=== PATIENT | male | born 1950 | race African-American/Black ===

== ENCOUNTER 2018-09-08 12:20 | Inpatient (IN) | payer MEDICARE ==
[2018-09-08 13:05] VITALS: BP 133/68
[2018-09-08] MEDS ORDERED: Magnesium Hydroxide (MOM) 30 mL UDC PO PRN (14:16)
[2018-09-08] MEDS ORDERED: Maalox 30 mL Cup PO PRN (14:16)
[2018-09-08 16:42] LABS: CHOLESTEROL 170 mg/dL (<200); HDL -HIGH DENSITY LIPOPROTEIN 50 mg/dL (23-92); TRIGLYCERIDES 135 mg/dL (<150)
[2018-09-09 07:02] LABS: % BASOPHILS 0.6 % (0.0-2.0); % EOSINOPHILS 0.8 % (0.0-5.0); % LYMPHOCYTES 36.6 % (20.0-50.0); % MONOCYTES 7.9 % (2.0-10.0); % NEUTROPHILS 54.1 % (40.0-80.0); HEMATOCRIT 43.8 % (41.0-60); HEMOGLOBIN 14.7 gm/dL (12-16); LYMPHOCYTE ABSOLUTE 1.8 Th/cmm (1.5-3.0); MEAN CELL VOLUME 89.4 fl (80-99); MEAN CORPUSCULAR HGB CONC 33.5 pg (28.0-36.0); MEAN PLATELET VOLUME 8.2 fl; MONOCYTE ABSOLUTE 0.4 Th/cmm (0.3-1.0); NEUTROPHILE ABSOLUTE 2.7 Th/cmm (1.8-8.0); PLATELET COUNT 216 Th/cmm (150-400); RED BLOOD COUNT 4.89 Mil/cmm (3.80-5.80); RED CELL DISTRIBUTION WIDTH 13.9 % (11.5-20.0); WHITE BLOOD COUNT 4.9 Th/cmm (4.8-10.8)
[2018-09-09 07:13] LABS: ALB/GLOB RATIO 1.5 (1.0-1.8); ALBUMIN 4.4 gm/dL (4.2-5.5); ALKALINE PHOSPHATASE 70 U/L (34-104); ANION GAP 11.6 (7.0-16.0); BILIRUBIN,TOTAL 0.7 mg/dL (0.3-1.0); BUN - UREA NITROGEN 13 mg/dL (7-25); CALCIUM SERUM 9.7 mg/dL (8.6-10.3); CARBON DIOXIDE 28.6 mEq/L (21.0-31.0); CHLORIDE 95 mEq/L (98-107); CREATININE - SERUM 1.1 mg/dL (0.7-1.3); GFR AFRICAN-AMERICAN > 60.0 ml/min (>90); GFR NON AFRICAN-AMERICAN > 60.0 ml/min; GLUCOSE 305 mg/dL (70-105); POTASSIUM SERUM 4.2 mEq/L (3.5-5.1); SGOT 12 U/L (13-39); SGPT/ALT 17 U/L (7-52); SODIUM SERUM 131 mEq/L (136-145); TOTAL PROTEIN,SERUM 7.3 gm/dL (6.0-8.3)
--- NOTE | 2018-09-09 08:29 | Diagnostic Imaging Report ---
Chest x-ray single view History: Pneumonia Comparison: None The heart size is normal. No focal pulmonary parenchymal processes. No hilar or mediastinal abnormalities. Impression: No acute abnormalities
[2018-09-09] MEDS: Multivitamin w/ Minerals Tab PO SCH (11:21)
[2018-09-09] MEDS: Carbidopa/Levodopa 10/100 mg Tab PO SCH ×2 (11:21→16:26)
[2018-09-09] MEDS ORDERED: INSULIN LISPRO SLIDING SCALE 100 UNITS/ML UNIT SUBQ SCH (11:30)
[2018-09-09] MEDS: INSULIN LISPRO SLIDING SCALE 100 UNITS/ML UNIT SUBQ SCH ×2 (16:39→21:00)
--- NOTE | 2018-09-10 00:03 | Consultation ---
DATE OF CONSULTATION: INTERNAL MEDICINE CONSULTATION REFERRING PHYSICIAN: Dr. Castellanos. REASON FOR CONSULT: Medical management. HISTORY OF PRESENT ILLNESS: This is a 67-year-old -[place] gentleman with history of schizophrenia, schizoaffective disorder, bipolar disease; who was transferred from the another facility for further psych supportive care and management. He does have a history significant for Parkinson's disease, type 2 diabetes, possibly BPH, and nicotine dependence. He also apparently suffers from dementia. PAST MEDICAL HISTORY: As noted above. PAST SURGICAL HISTORY: Appendectomy many years ago. FAMILY HISTORY: Noncontributory to this admission. SOCIAL HISTORY: Smokes about half a pack a day, has been doing that for many years. Denies any ETOH and illicit drug usage. ALLERGIES: NKDA. OUTPATIENT MEDICATIONS: Insulin sliding scale with lispro, Celexa 20 every day, Tylenol 325 q.4h. p.r.n., aspirin 81 every day, carbidopa/levodopa 10/100 2 tabs q.a.c., Comtan 200 mg t.i.d., gabapentin 300 mg t.i.d., Glucophage 500 mg b.i.d., multivitamins every day, and Flomax 0.4 every day. REVIEW OF SYSTEMS: CONSTITUTIONAL: Denies any fever, chills, and no recent weight loss. CARDIOVASCULAR: No chest pain, angina type symptomatology. PULMONARY: No cough, phlegm production. GASTROINTESTINAL: No bowel habit changes. GENITOURINARY: No bladder habit changes. NEUROLOGIC: Chronic upper extremity tremors. He also relates difficult ambulation secondary to his Parkinson's disease. PHYSICAL EXAMINATION: VITAL SIGNS: Temperature 97.8, pulse 83, respirations 20, BP 126/83, and satting 96-97% on room air. GENERAL: Well-developed, well-nourished male, currently sitting up in a wheelchair, awake, able to answer simple questions. HEAD AND NECK: Normocephalic, atraumatic. Pupils are reactive to light. Extraocular movements are intact. Oropharynx moist and clear. CARDIAC: Regular rate and rhythm with distant sounds. No audible murmurs. LUNGS: Diminished at the bases, but clear to auscultation bilaterally. ABDOMEN: Soft, supple, nontender, nondistended, normoactive bowel sounds. EXTREMITIES: Lower extremities, no pedal edema. NEUROLOGIC: Cranial nerves II through XII grossly within limits. He does have an unintentional tremor on both upper extremities. Rest of the exam could not be tested at this time. LABORATORY DATA: CBC was essentially within normal limits. Sodium 131, potassium 4.2, chloride 95, CO2 28, BUN 13, creatinine 1.1, glucose 305. LFTs were within normal limits. DIAGNOSTICS: Chest x-ray done on admission shows no acute abnormalities. IMPRESSION: 1. Acute psych decompensation. 2. History of schizophrenia/schizoaffective disease. 3. History of bipolar disease. 4. History of Parkinson's disease. 5. History of diabetes. 6. History of benign prostatic hypertrophy. PLAN: The patient at this time will remain on his current medications including metformin at 500 mg b.i.d. as well as aspirin 81 every day, and carbidopa/levodopa. He will be monitored with insulin sliding scale and meds will be adjusted accordingly. I will ask for a hemoglobin A1c and a TSH level as well. JOB# [id number] MEGGAN
--- NOTE | 2018-09-10 03:12 | Psychiatric Evaluation ---
DATE OF SERVICE: 09/09/2018 PATIENT'S ID: A 67-year-old male. JUSTIFICATION FOR HOSPITALIZATION: "Worsening psychosis." CHIEF COMPLAINT: "I lost my mind." HISTORY OF PRESENT ILLNES: Again, 67-year-old male, currently in the hospital, psychotic decompensation, noting that he does not feel safe outside the hospital setting, distressed, endorsing psychological distress, turmoil, coming on a hold. The patient noting that he is having a difficult time coping with his thoughts , negative thoughts, pessimistic thoughts. Fair sleep, fair appetite. PAST PSYCHIATRIC HISTORY: Schizophrenia, hospitalizations in the past. Under medical, please see full H and P. SOCIAL HISTORY: The patient was born in [place], not . He has 3 kids; 36, 32, 26. Very little contact. The patient was living in [place], but wants to live more locally to the hospital. MEDICATIONS: Noted. MENTAL STATUS EXAMINATION: Stated age, fair eye contact. Speech within normal limits. Mood "okay." Some tardive dyskinesia movements. Oral buccal movements noted, restless on exam. No overt SI or HI. The patient attesting to voices, hallucinations. Insight and judgment diminished. PROVISIONAL DIAGNOSIS: Schizophrenia. Under medical, please see full H and P. RECOMMENDATIONS AND PLAN: We will attempt to treat psychotic symptoms. The patient with diagnosis of Parkinson's per the patient and what appears to be tardive dyskinesia. PLAN: We will initiate small dose of Seroquel twice daily to attempt to alleviate his psychotic symptoms without worsening the tardive dyskinesia or the Parkinson's disease. TREATMENT PLAN: Includes group as well as milieu therapy. CONDITIONS FOR DISCHARGE: Improved mood, improved affect, and better control of psychosis. [facility]# [id number]
[2018-09-10] MEDS: Carbidopa/Levodopa 10/100 mg Tab PO SCH ×3 (06:57→17:30)
[2018-09-10] MEDS: INSULIN LISPRO SLIDING SCALE 100 UNITS/ML UNIT SUBQ SCH ×4 (07:06→21:47)
[2018-09-10] MEDS: Multivitamin w/ Minerals Tab PO SCH (09:16)
--- NOTE | 2018-09-10 09:38 | Internal Medicine Prog Note ---
Internal Medicine Subjective - Subjective Service Date: 09/10/18 (NO ACUTE EVENTS OR CHANGES) Patient seen and examined:: without staff Patient is:: awake Per staff patient has:: no adverse event Internal Medicine Objective - Results Result Diagrams: 09/09/18 06:35 09/09/18 06:35 Recent Labs: Laboratory Last Values WBC 4.9 Th/cmm (4.8-10.8) 09/09/18 06:35 RBC 4.89 Mil/cmm (3.80-5.80) 09/09/18 06:35 Hgb 14.7 gm/dL (12-16) 09/09/18 06:35 Hct 43.8 % (41.0-60) 09/09/18 06:35 MCV 89.4 fl (80-99) 09/09/18 06:35 MCH 30.0 pg (27.0-31.0) 09/09/18 06:35 MCHC Differential 33.5 pg (28.0-36.0) 09/09/18 06:35 RDW 13.9 % (11.5-20.0) 09/09/18 06:35 Plt Count 216 Th/cmm (150-400) 09/09/18 06:35 MPV 8.2 fl 09/09/18 06:35 Neutrophils % 54.1 % (40.0-80.0) 09/09/18 06:35 Lymphocytes % 36.6 % (20.0-50.0) 09/09/18 06:35 Monocytes % 7.9 % (2.0-10.0) 09/09/18 06:35 Eosinophils % 0.8 % (0.0-5.0) 09/09/18 06:35 Basophils % 0.6 % (0.0-2.0) 09/09/18 06:35 Sodium 131 mEq/L (136-145) L 09/09/18 06:35 Potassium 4.2 mEq/L (3.5-5.1) 09/09/18 06:35 Chloride 95 mEq/L (98-107) L 09/09/18 06:35 Carbon Dioxide 28.6 mEq/L (21.0-31.0) 09/09/18 06:35 Anion Gap 11.6 (7.0-16.0) 09/09/18 06:35 BUN 13 mg/dL (7-25) 09/09/18 06:35 Creatinine 1.1 mg/dL (0.7-1.3) 09/09/18 06:35 Est GFR ( Amer) > 60.0 ml/min (>90) 09/09/18 06:35 Est GFR (Non-Af Amer) > 60.0 ml/min 09/09/18 06:35 BUN/Creatinine Ratio 11.8 09/09/18 06:35 Glucose 305 mg/dL (70-105) H 09/09/18 06:35 Calcium 9.7 mg/dL (8.6-10.3) 09/09/18 06:35 Total Bilirubin 0.7 mg/dL (0.3-1.0) 09/09/18 06:35 AST 12 U/L (13-39) L 09/09/18 06:35 ALT 17 U/L (7-52) 09/09/18 06:35 Alkaline Phosphatase 70 U/L (34-104) 09/09/18 06:35 Total Protein 7.3 gm/dL (6.0-8.3) 09/09/18 06:35 Albumin 4.4 gm/dL (4.2-5.5) 09/09/18 06:35 Globulin 2.9 gm/dL 09/09/18 06:35 Albumin/Globulin Ratio 1.5 (1.0-1.8) 09/09/18 06:35 Triglycerides 135 mg/dL (<150) 09/08/18 16:00 Cholesterol 170 mg/dL (<200) 09/08/18 16:00 LDL Cholesterol Direct 105 mg/dL (75-193) 09/08/18 16:00 HDL Cholesterol 50 mg/dL (23-92) 09/08/18 16:00 - Physical Exam Vitals and I&O: Vital Signs Temp 97.6 F 09/10/18 06:33 Pulse 100 09/10/18 06:33 Resp 20 09/10/18 06:33 BP 113/70 09/10/18 06:33 Pulse Ox 97 09/10/18 06:33 Intake & Output 09/09/18 09/10/18 09/10/18 18:59 06:59 18:59 Intake Total 900 240 Balance 900 240 Intake: Oral 900 240 Other: # Voids 3 2 # Bowel Movements 1 0 Active Medications: Current Medications Acetaminophen (Tylenol) 650 mg PO Q4HR PRN PRN Reason: Mild Pain / Temp above 100 Stop: 11/07/18 14:15 Last Admin: 09/09/18 09:11 Dose: 650 mg Al Hydrox/Mg Hydrox/Simethicone (Maalox) 30 ml PO Q4HR PRN PRN Reason: GI DISTRESS Stop: 11/07/18 14:15 Aspirin (Ecotrin) 81 mg PO DAILY [facility] Stop: 11/08/18 10:14 Last Admin: 09/10/18 09:16 Dose: 81 mg Carbidopa/Levodopa (Sinemet 10 Mg-100 Mg) 2 tab PO AC [facility] Stop: 11/08/18 11:29 Last Admin: 09/10/18 06:57 Dose: 2 tab Entacapone (Comtan) 200 mg PO TID [facility] Stop: 11/08/18 13:59 Last Admin: 09/10/18 09:16 Dose: 200 mg Gabapentin (Neurontin) 300 mg PO TID [facility] Stop: 11/08/18 13:59 Last Admin: 09/10/18 09:16 Dose: 300 mg Insulin Human Lispro (Humalog Insulin Sliding Scale) 0 units SUBQ ACHS [facility]; Protocol Stop: 11/08/18 11:29 Last Admin: 09/10/18 07:06 Dose: 10 units Lorazepam (Ativan) 0.5 mg PO Q4HR PRN; Protocol PRN Reason: Anxiety Stop: 10/08/18 14:15 Last Admin: 09/09/18 21:19 Dose: 0.5 mg Magnesium Hydroxide (Milk Of Magnesia) 30 ml PO HS PRN PRN Reason: Constipation Metformin HCl (Glucophage) 500 mg PO BID [facility] Stop: 11/08/18 10:14 Last Admin: 09/10/18 09:16 Dose: 500 mg Quetiapine Fumarate (Seroquel) 25 mg PO BID [facility]; Protocol Stop: 11/08/18 16:59 Tamsulosin HCl (Flomax) 0.8 mg PO HS [facility] Stop: 11/08/18 20:59 Last Admin: 09/09/18 21:18 Dose: 0.8 mg Zolpidem Tartrate (Ambien) 5 mg PO HS PRN PRN Reason: Insomnia Stop: 11/07/18 14:15 Last Admin: 09/08/18 21:34 Dose: 5 mg General: alert HEENT: NC/AT, EOMI, throat clear Neck: No JVD, No thyromegaly, No LAD Lungs: CTAB Cardiovascular: RRR, Normal S1, Normal S2, without murmur Internal Medicine Assmt/Plan - Assessment Assessment: ACUTE PSYCH DECOMPENSATION HISTORY OF SCHIZOPHRENIA HISTORY OF BIPOLAR D/O HISTORY OF DM-2 HISTORY OF PERIPHERAL NEUROPATHY HISTORY OF BPH HYPONATREMIA - Plan Plan: CONT WITH CURRENT IN-PATIENT PSYCH SUPPORTIVE CARE AND MGT CONT WITH SINEMET/COMTAM SCHEDULED CONT WITH GLUCOPHAGE 500MG BID, ISS/GLUCOMETER READINGS/FOLLOW A1C RESULTS CONT WITH NEURONTIN SCHEDULED CONT WITH FLOMAX SCHEDULED Nutritional Asmnt/Malnutr-PDOC - Dietary Evaluation Malnutrition Findings (Please click <Entered> for more info): Nutritional Asmnt/Malnutrition Start: 09/09/18 16: 33 Text: Status: Complete Freq: Protocol: Document 09/09/18 16:33 LCHENG (Rec: 09/09/18 16:42 [email or web address]) Nutritional Asmnt/Malnutrition Patient General Information Nutritional Screening High Risk Consult Diagnosis psychosis NOS Pertinent Medical Hx/Surgical Hx no H&P as of now Subjective Information Consult received for DM. Pt seen walking in hallway, stated food is ok. Not able to obtain more nutrition information or provide diabetic education d/t pt mental status. Per EMR, PO intake 100%. Current Diet Order/ Nutrition Support CCHO 60gm Pertinent Medications humalog, glucophage, seroquel Pertinent Labs 09/09 Na 131, Cl 95, Glucose 305 Nutritional Hx/Data Height 1.75 m Height (Calculated Centimeters) 175.3 Current Weight (lbs) 83.915 kg Weight (Calculated Kilograms) 83.9 Weight (Calculated Grams) 47387.6 [place] Body Weight 160 Body Mass Index (BMI) 27.3 Weight Status Overweight GI Symptoms GI Symptoms None Last BM none Difficult in: None Skin Integrity/Comment: intact Current %PO Good (75-100%) Estimated Nutritional Goals BEE in Kcals: Using Current wt Calories/Kcals/Kg 23-27 Kcals Calculated 9891-8330 Protein: Using Current wt Protein g/k Protein Calculated 84 Fluid: ml 1932-2268ml (1ml/kcal) Nutritional Problem 1. Problem Problem altered nutrition related labs Etiology hyperglycemia Signs/Symptoms: glucose 305 Malnutrition Alert Is there a minimum of two criteria No selected? Query Text:Check all the applicable criteria. A minimum of two criteria are recommended for diagnosis of either severe or non-severe malnutrition. Malnutrition Related to Morbid Obesity Malnutrition related to morbid obesity No Intervention/Recommendation Comments 1. [facility] as ordered. MD to adjust insulin regimen for optimal glycemic control 2. Monitor PO intake, wt, labs and skin integrity 3. F/U as moderate risk in 3-5 days Expected Outcomes/Goals Expected Outcomes/Goals 1. PO intake to meet at least 75% of nutritional needs. 2. Wt stability, skin to remain intact, labs to approach WNL.
[2018-09-11] MEDS: Carbidopa/Levodopa 10/100 mg Tab PO SCH ×3 (06:40→17:09)
[2018-09-11] MEDS: INSULIN LISPRO SLIDING SCALE 100 UNITS/ML UNIT SUBQ SCH ×4 (06:41→20:53)
[2018-09-11] MEDS: Multivitamin w/ Minerals Tab PO SCH (09:17)
--- NOTE | 2018-09-11 14:25 | Internal Medicine Prog Note ---
Internal Medicine Subjective - Subjective Service Date: 09/11/18 (COMFORTABLE) Patient is:: awake Per staff patient has:: no adverse event Internal Medicine Objective - Results Result Diagrams: 09/09/18 06:35 09/09/18 06:35 Recent Labs: Laboratory Last Values WBC 4.9 Th/cmm (4.8-10.8) 09/09/18 06:35 RBC 4.89 Mil/cmm (3.80-5.80) 09/09/18 06:35 Hgb 14.7 gm/dL (12-16) 09/09/18 06:35 Hct 43.8 % (41.0-60) 09/09/18 06:35 MCV 89.4 fl (80-99) 09/09/18 06:35 MCH 30.0 pg (27.0-31.0) 09/09/18 06:35 MCHC Differential 33.5 pg (28.0-36.0) 09/09/18 06:35 RDW 13.9 % (11.5-20.0) 09/09/18 06:35 Plt Count 216 Th/cmm (150-400) 09/09/18 06:35 MPV 8.2 fl 09/09/18 06:35 Neutrophils % 54.1 % (40.0-80.0) 09/09/18 06:35 Lymphocytes % 36.6 % (20.0-50.0) 09/09/18 06:35 Monocytes % 7.9 % (2.0-10.0) 09/09/18 06:35 Eosinophils % 0.8 % (0.0-5.0) 09/09/18 06:35 Basophils % 0.6 % (0.0-2.0) 09/09/18 06:35 Sodium 131 mEq/L (136-145) L 09/09/18 06:35 Potassium 4.2 mEq/L (3.5-5.1) 09/09/18 06:35 Chloride 95 mEq/L (98-107) L 09/09/18 06:35 Carbon Dioxide 28.6 mEq/L (21.0-31.0) 09/09/18 06:35 Anion Gap 11.6 (7.0-16.0) 09/09/18 06:35 BUN 13 mg/dL (7-25) 09/09/18 06:35 Creatinine 1.1 mg/dL (0.7-1.3) 09/09/18 06:35 Est GFR ( Amer) > 60.0 ml/min (>90) 09/09/18 06:35 Est GFR (Non-Af Amer) > 60.0 ml/min 09/09/18 06:35 BUN/Creatinine Ratio 11.8 09/09/18 06:35 Glucose 305 mg/dL (70-105) H 09/09/18 06:35 Calcium 9.7 mg/dL (8.6-10.3) 09/09/18 06:35 Total Bilirubin 0.7 mg/dL (0.3-1.0) 09/09/18 06:35 AST 12 U/L (13-39) L 09/09/18 06:35 ALT 17 U/L (7-52) 09/09/18 06:35 Alkaline Phosphatase 70 U/L (34-104) 09/09/18 06:35 Total Protein 7.3 gm/dL (6.0-8.3) 09/09/18 06:35 Albumin 4.4 gm/dL (4.2-5.5) 09/09/18 06:35 Globulin 2.9 gm/dL 09/09/18 06:35 Albumin/Globulin Ratio 1.5 (1.0-1.8) 09/09/18 06:35 Triglycerides 135 mg/dL (<150) 09/08/18 16:00 Cholesterol 170 mg/dL (<200) 09/08/18 16:00 LDL Cholesterol Direct 105 mg/dL (75-193) 09/08/18 16:00 HDL Cholesterol 50 mg/dL (23-92) 09/08/18 16:00 TSH 1.23 uIU/ml (0.34-5.60) 09/09/18 06:35 - Physical Exam Vitals and I&O: Vital Signs Temp 98.2 F 09/11/18 06:19 Pulse 102 09/11/18 06:19 Resp 20 09/11/18 08:00 BP 115/65 09/11/18 06:19 Pulse Ox 98 09/11/18 06:19 Intake & Output 09/10/18 09/11/18 09/11/18 18:59 06:59 18:59 Intake Total 1200 120 Balance 1200 120 Intake: Oral 1200 120 Other: # Voids 3 # Bowel Movements 1 Active Medications: Current Medications Acetaminophen (Tylenol) 650 mg PO Q4HR PRN PRN Reason: Mild Pain / Temp above 100 Stop: 11/07/18 14:15 Last Admin: 09/09/18 09:11 Dose: 650 mg Al Hydrox/Mg Hydrox/Simethicone (Maalox) 30 ml PO Q4HR PRN PRN Reason: GI DISTRESS Stop: 11/07/18 14:15 Aspirin (Ecotrin) 81 mg PO DAILY [facility] Stop: 11/08/18 10:14 Last Admin: 09/11/18 09:15 Dose: 81 mg Benztropine Mesylate (Cogentin) 1 mg PO BID [facility] Stop: 11/10/18 08:59 Last Admin: 09/11/18 09:15 Dose: 1 mg Carbidopa/Levodopa (Sinemet 10 Mg-100 Mg) 2 tab PO AC [facility] Stop: 11/08/18 11:29 Last Admin: 09/11/18 12:03 Dose: 2 tab Entacapone (Comtan) 200 mg PO TID [facility] Stop: 11/08/18 13:59 Last Admin: 09/11/18 13:21 Dose: 200 mg Gabapentin (Neurontin) 300 mg PO TID [facility] Stop: 11/08/18 13:59 Last Admin: 09/11/18 13:21 Dose: 300 mg Insulin Human Lispro (Humalog Insulin Sliding Scale) 0 units SUBQ ACHS [facility]; Protocol Stop: 11/08/18 11:29 Last Admin: 09/11/18 12:03 Dose: 6 units Lorazepam (Ativan) 0.5 mg PO Q4HR PRN; Protocol PRN Reason: Anxiety Stop: 10/08/18 14:15 Last Admin: 09/09/18 21:19 Dose: 0.5 mg Magnesium Hydroxide (Milk Of Magnesia) 30 ml PO HS PRN PRN Reason: Constipation Metformin HCl (Glucophage) 500 mg PO BID [facility] Stop: 11/08/18 10:14 Last Admin: 09/11/18 09:16 Dose: 500 mg Quetiapine Fumarate (Seroquel) 25 mg PO BID [facility]; Protocol Stop: 11/08/18 16:59 Last Admin: 09/11/18 09:19 Dose: Not Given Tamsulosin HCl (Flomax) 0.8 mg PO HS [facility] Stop: 11/08/18 20:59 Last Admin: 09/10/18 21:46 Dose: 0.8 mg Zolpidem Tartrate (Ambien) 5 mg PO HS PRN PRN Reason: Insomnia Stop: 11/07/18 14:15 Last Admin: 09/08/18 21:34 Dose: 5 mg General: alert HEENT: NC/AT, EOMI, throat clear Neck: No JVD, No thyromegaly, No LAD Lungs: CTAB Cardiovascular: RRR, Normal S1, Normal S2, without murmur Extremities: clear Neurological: no change, no unsteady Internal Medicine Assmt/Plan - Assessment Assessment: ACUTE PSYCH DECOMPENSATION HISTORY OF SCHIZOPHRENIA HISTORY OF BIPOLAR D/O HISTORY OF DM-2 HISTORY OF PERIPHERAL NEUROPATHY HISTORY OF PARKINSON'S DISEASE HISTORY OF NICOTINE DEPENDENCE HISTORY OF BPH HYPONATREMIA - Plan Plan: CONT WITH CURRENT IN-PATIENT PSYCH SUPPORTIVE CARE AND MGT CONT WITH SINEMET/COMTAM SCHEDULED CONT WITH GLUCOPHAGE 500MG BID, ISS/GLUCOMETER READINGS/FOLLOW A1C RESULTS CONT WITH NEURONTIN SCHEDULED CONT WITH FLOMAX SCHEDULED Nutritional Asmnt/Malnutr-PDOC - Dietary Evaluation Malnutrition Findings (Please click <Entered> for more info): Nutritional Asmnt/Malnutrition Start: 09/09/18 16: 33 Text: Status: Complete Freq: Protocol: Document 09/09/18 16:33 LCHENG (Rec: 09/09/18 16:42 [email or web address]) Nutritional Asmnt/Malnutrition Patient General Information Nutritional Screening High Risk Consult Diagnosis psychosis NOS Pertinent Medical Hx/Surgical Hx no H&P as of now Subjective Information Consult received for DM. Pt seen walking in hallway, stated food is ok. Not able to obtain more nutrition information or provide diabetic education d/t pt mental status. Per EMR, PO intake 100%. Current Diet Order/ Nutrition Support CCHO 60gm Pertinent Medications humalog, glucophage, seroquel Pertinent Labs 09/09 Na 131, Cl 95, Glucose 305 Nutritional Hx/Data Height 1.75 m Height (Calculated Centimeters) 175.3 Current Weight (lbs) 83.915 kg Weight (Calculated Kilograms) 83.9 Weight (Calculated Grams) 03145.6 [place] Body Weight 160 Body Mass Index (BMI) 27.3 Weight Status Overweight GI Symptoms GI Symptoms None Last BM none Difficult in: None Skin Integrity/Comment: intact Current %PO Good (75-100%) Estimated Nutritional Goals BEE in Kcals: Using Current wt Calories/Kcals/Kg 23-27 Kcals Calculated 8049-0730 Protein: Using Current wt Protein g/k Protein Calculated 84 Fluid: ml 1932-2268ml (1ml/kcal) Nutritional Problem 1. Problem Problem altered nutrition related labs Etiology hyperglycemia Signs/Symptoms: glucose 305 Malnutrition Alert Is there a minimum of two criteria No selected? Query Text:Check all the applicable criteria. A minimum of two criteria are recommended for diagnosis of either severe or non-severe malnutrition. Malnutrition Related to Morbid Obesity Malnutrition related to morbid obesity No Intervention/Recommendation Comments 1. Continue with [facility] diet as ordered. MD to adjust insulin regimen for optimal glycemic control 2. Monitor PO intake, wt, labs and skin integrity 3. F/U as moderate risk in 3-5 days Expected Outcomes/Goals Expected Outcomes/Goals 1. PO intake to meet at least 75% of nutritional needs. 2. Wt stability, skin to remain intact, labs to approach WNL.
--- NOTE | 2018-09-11 18:16 | Progress Notes ---
DATE: 09/10/2018 SUBJECTIVE: The patient noted to be feeling depressed, withdrawn, on edge, ongoing perceptual disturbances, wanting dose adjustments of medications, not narciso for safety, homeless nowhere to go, nowhere to live, agreeable and wanting a place close to the hospital. Fair sleep, fair appetite. MENTAL STATUS EXAMINATION: Stated age, tired eyes, dyskinesia, tired movements noted, body tremors, no SI, no HI, ongoing hallucinations. PLAN: We will continue to monitor, adjust meds conservatively. JOB# [id number]
--- NOTE | 2018-09-11 21:20 | Progress Notes ---
DATE: 09/11/2018 SUBJECTIVE: The patient was seen today 09/11/2018. Currently, in the hospital, psychotic symptoms. Perceptual disturbances. Came in with "shakiness," tremors, possible tardive dyskinesia. The patient remains preoccupied, withdrawn, would like something for "shakes," currently on low dose of Seroquel. 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 ASSESSMENT: The patient with ongoing psychiatric symptoms. Perceptual disturbances. PLAN: We will continue to monitor. Start cogentin dosing. JOB# [id number]
[2018-09-12] MEDS: INSULIN LISPRO SLIDING SCALE 100 UNITS/ML UNIT SUBQ SCH ×4 (06:46→21:26)
[2018-09-12] MEDS: Carbidopa/Levodopa 10/100 mg Tab PO SCH ×3 (06:46→16:23)
[2018-09-12] MEDS: Multivitamin w/ Minerals Tab PO SCH (09:38)
--- NOTE | 2018-09-12 22:11 | Internal Medicine Prog Note ---
Internal Medicine Subjective - Subjective Service Date: 09/12/18 (comfortable) Patient is:: awake Per staff patient has:: no adverse event Internal Medicine Objective - Results Result Diagrams: 09/09/18 06:35 09/09/18 06:35 Recent Labs: Laboratory Last Values WBC 4.9 Th/cmm (4.8-10.8) 09/09/18 06:35 RBC 4.89 Mil/cmm (3.80-5.80) 09/09/18 06:35 Hgb 14.7 gm/dL (12-16) 09/09/18 06:35 Hct 43.8 % (41.0-60) 09/09/18 06:35 MCV 89.4 fl (80-99) 09/09/18 06:35 MCH 30.0 pg (27.0-31.0) 09/09/18 06:35 MCHC Differential 33.5 pg (28.0-36.0) 09/09/18 06:35 RDW 13.9 % (11.5-20.0) 09/09/18 06:35 Plt Count 216 Th/cmm (150-400) 09/09/18 06:35 MPV 8.2 fl 09/09/18 06:35 Neutrophils % 54.1 % (40.0-80.0) 09/09/18 06:35 Lymphocytes % 36.6 % (20.0-50.0) 09/09/18 06:35 Monocytes % 7.9 % (2.0-10.0) 09/09/18 06:35 Eosinophils % 0.8 % (0.0-5.0) 09/09/18 06:35 Basophils % 0.6 % (0.0-2.0) 09/09/18 06:35 Sodium 131 mEq/L (136-145) L 09/09/18 06:35 Potassium 4.2 mEq/L (3.5-5.1) 09/09/18 06:35 Chloride 95 mEq/L (98-107) L 09/09/18 06:35 Carbon Dioxide 28.6 mEq/L (21.0-31.0) 09/09/18 06:35 Anion Gap 11.6 (7.0-16.0) 09/09/18 06:35 BUN 13 mg/dL (7-25) 09/09/18 06:35 Creatinine 1.1 mg/dL (0.7-1.3) 09/09/18 06:35 Est GFR ( Amer) > 60.0 ml/min (>90) 09/09/18 06:35 Est GFR (Non-Af Amer) > 60.0 ml/min 09/09/18 06:35 BUN/Creatinine Ratio 11.8 09/09/18 06:35 Glucose 305 mg/dL (70-105) H 09/09/18 06:35 POC Glucose 111 MG/DL (70 - 105) H 09/11/18 16:59 Calcium 9.7 mg/dL (8.6-10.3) 09/09/18 06:35 Total Bilirubin 0.7 mg/dL (0.3-1.0) 09/09/18 06:35 AST 12 U/L (13-39) L 09/09/18 06:35 ALT 17 U/L (7-52) 09/09/18 06:35 Alkaline Phosphatase 70 U/L (34-104) 09/09/18 06:35 Total Protein 7.3 gm/dL (6.0-8.3) 09/09/18 06:35 Albumin 4.4 gm/dL (4.2-5.5) 09/09/18 06:35 Globulin 2.9 gm/dL 09/09/18 06:35 Albumin/Globulin Ratio 1.5 (1.0-1.8) 09/09/18 06:35 Triglycerides 135 mg/dL (<150) 09/08/18 16:00 Cholesterol 170 mg/dL (<200) 09/08/18 16:00 LDL Cholesterol Direct 105 mg/dL (75-193) 09/08/18 16:00 HDL Cholesterol 50 mg/dL (23-92) 09/08/18 16:00 TSH 1.23 uIU/ml (0.34-5.60) 09/09/18 06:35 - Physical Exam Vitals and I&O: Vital Signs Temp 97.6 F 09/12/18 20:53 Pulse 77 09/12/18 20:53 Resp 20 09/12/18 20:53 BP 103/68 09/12/18 20:53 Pulse Ox 97 09/12/18 20:53 Intake & Output 09/12/18 09/12/18 09/13/18 06:59 18:59 06:59 Intake Total 120 1200 480 Balance 120 1200 480 Intake: Oral 120 1200 480 Other: # Voids 3 3 2 # Bowel Movements 0 Active Medications: Current Medications Acetaminophen (Tylenol) 650 mg PO Q4HR PRN PRN Reason: Mild Pain / Temp above 100 Stop: 11/07/18 14:15 Last Admin: 09/09/18 09:11 Dose: 650 mg Al Hydrox/Mg Hydrox/Simethicone (Maalox) 30 ml PO Q4HR PRN PRN Reason: GI DISTRESS Stop: 11/07/18 14:15 Aspirin (Ecotrin) 81 mg PO DAILY [facility] Stop: 11/08/18 10:14 Last Admin: 09/12/18 09:38 Dose: 81 mg Benztropine Mesylate (Cogentin) 1 mg PO BID [facility] Stop: 11/10/18 08:59 Last Admin: 09/12/18 16:23 Dose: 1 mg Carbidopa/Levodopa (Sinemet 10 Mg-100 Mg) 2 tab PO AC [facility] Stop: 11/08/18 11:29 Last Admin: 09/12/18 16:23 Dose: 2 tab Entacapone (Comtan) 200 mg PO TID [facility] Stop: 11/08/18 13:59 Last Admin: 09/12/18 21:25 Dose: 200 mg Gabapentin (Neurontin) 300 mg PO TID [facility] Stop: 11/08/18 13:59 Last Admin: 09/12/18 21:25 Dose: 300 mg Insulin Human Lispro (Humalog Insulin Sliding Scale) 0 units SUBQ ACHS [facility]; Protocol Stop: 11/08/18 11:29 Last Admin: 09/12/18 21:26 Dose: 2 units Lorazepam (Ativan) 0.5 mg PO Q4HR PRN; Protocol PRN Reason: Anxiety Stop: 10/08/18 14:15 Last Admin: 09/09/18 21:19 Dose: 0.5 mg Magnesium Hydroxide (Milk Of Magnesia) 30 ml PO HS PRN PRN Reason: Constipation Metformin HCl (Glucophage) 500 mg PO BID [facility] Stop: 11/08/18 10:14 Last Admin: 09/12/18 16:23 Dose: 500 mg Quetiapine Fumarate (Seroquel) 25 mg PO BID [facility]; Protocol Stop: 11/08/18 16:59 Last Admin: 09/12/18 16:21 Dose: 25 mg Tamsulosin HCl (Flomax) 0.8 mg PO HS ANNMARIE Stop: 11/08/18 20:59 Last Admin: 09/12/18 21:25 Dose: 0.8 mg Zolpidem Tartrate (Ambien) 5 mg PO HS PRN PRN Reason: Insomnia Stop: 11/07/18 14:15 Last Admin: 09/08/18 21:34 Dose: 5 mg General: alert HEENT: NC/AT, EOMI, throat clear Neck: No JVD, No thyromegaly, No LAD Lungs: CTAB Cardiovascular: RRR, Normal S1, Normal S2, without murmur Extremities: clear Neurological: no change, no unsteady Internal Medicine Assmt/Plan - Assessment Assessment: ACUTE PSYCH DECOMPENSATION HISTORY OF SCHIZOPHRENIA HISTORY OF BIPOLAR D/O HISTORY OF DM-2 HISTORY OF PERIPHERAL NEUROPATHY HISTORY OF PARKINSON'S DISEASE HISTORY OF NICOTINE DEPENDENCE HISTORY OF BPH HYPONATREMIA - Plan Plan: CONT WITH CURRENT IN-PATIENT PSYCH SUPPORTIVE CARE AND MGT CONT WITH SINEMET/COMTAM SCHEDULED CONT WITH GLUCOPHAGE 500MG BID, ISS/GLUCOMETER READINGS/FOLLOW A1C RESULTS CONT WITH NEURONTIN SCHEDULED CONT WITH FLOMAX SCHEDULED Nutritional Asmnt/Malnutr-PDOC - Dietary Evaluation Malnutrition Findings (Please click <Entered> for more info): Nutritional Asmnt/Malnutrition Start: 09/09/18 16: 33 Text: Status: Complete Freq: Protocol: Document 09/09/18 16:33 LCHENG (Rec: 09/09/18 16:42 [email or web address]) Nutritional Asmnt/Malnutrition Patient General Information Nutritional Screening High Risk Consult Diagnosis psychosis NOS Pertinent Medical Hx/Surgical Hx no H&P as of now Subjective Information Consult received for DM. Pt seen walking in hallway, stated food is ok. Not able to obtain more nutrition information or provide diabetic education d/t pt mental status. Per EMR, PO intake 100%. Current Diet Order/ Nutrition Support CCHO 60gm Pertinent Medications humalog, glucophage, seroquel Pertinent Labs 09/09 Na 131, Cl 95, Glucose 305 Nutritional Hx/Data Height 1.75 m Height (Calculated Centimeters) 175.3 Current Weight (lbs) 83.915 kg Weight (Calculated Kilograms) 83.9 Weight (Calculated Grams) 18218.6 [place] Body Weight 160 Body Mass Index (BMI) 27.3 Weight Status Overweight GI Symptoms GI Symptoms None Last BM none Difficult in: None Skin Integrity/Comment: intact Current %PO Good (75-100%) Estimated Nutritional Goals BEE in Kcals: Using Current wt Calories/Kcals/Kg 23-27 Kcals Calculated 7872-2075 Protein: Using Current wt Protein g/k Protein Calculated 84 Fluid: ml 2-2268ml (1ml/kcal) Nutritional Problem 1. Problem Problem altered nutrition related labs Etiology hyperglycemia Signs/Symptoms: glucose 305 Malnutrition Alert Is there a minimum of two criteria No selected? Query Text:Check all the applicable criteria. A minimum of two criteria are recommended for diagnosis of either severe or non-severe malnutrition. Malnutrition Related to Morbid Obesity Malnutrition related to morbid obesity No Intervention/Recommendation Comments 1. Continue with [facility] 60gm diet as ordered. MD to adjust insulin regimen for optimal glycemic control 2. Monitor PO intake, wt, labs and skin integrity 3. F/U as moderate risk in 3-5 days Expected Outcomes/Goals Expected Outcomes/Goals 1. PO intake to meet at least 75% of nutritional needs. 2. Wt stability, skin to remain intact, labs to approach WNL.
[2018-09-13] MEDS: Carbidopa/Levodopa 10/100 mg Tab PO SCH ×3 (06:40→18:16)
[2018-09-13] MEDS: INSULIN LISPRO SLIDING SCALE 100 UNITS/ML UNIT SUBQ SCH ×4 (06:40→20:39)
[2018-09-13] MEDS: Multivitamin w/ Minerals Tab PO SCH (09:40)
--- NOTE | 2018-09-13 13:21 | Progress Notes ---
DATE: 09/12/2018 The patient in the hospital, psychotic, decompensation, decompensated mood coming in with what appears to be extrapyramidal side effects. Medications have been adjusted and titrated. The patient does seem to be showing some signs of improvement, generally calmer, more cooperative, ongoing perceptual disturbances. EPS much less. The patient does not have any vertigo, would like placement. We will attempt to work on placement. Medications were noted. ASSESSMENT: The patient generally calmer, more cooperative, concerns for underlying psychosis, will titrate medications as tolerated. JOB# [id number]
--- NOTE | 2018-09-14 02:54 | Progress Notes ---
DATE: 09/13/2018 IDENTIFYING DATA: I lost my mind. A 67-year-old male brought in here. Reports he lost his mind. He voiced discussed overwhelming and distressful. Medication reconciliation reviewed. Currently on Cogentin 1 mg p.o. b.i.d., Sinemet, Neurontin 300 mg p.o. t.i.d., metformin, and Seroquel 25 mg p.o. b.i.d. Today on [id number] evaluation, the patient reported the voices are less distressful. Denies any complications or side effects of the Seroquel. We will continue with the current medication regimen as medications starting to reach a steady state. Denies any complications, improvement with the EPS with the Cogentin. JOB# [id number]
[2018-09-14] MEDS: Carbidopa/Levodopa 10/100 mg Tab PO SCH ×3 (06:38→18:21)
[2018-09-14] MEDS: INSULIN LISPRO SLIDING SCALE 100 UNITS/ML UNIT SUBQ SCH ×4 (07:04→21:16)
[2018-09-14] MEDS: Multivitamin w/ Minerals Tab PO SCH (08:06)
--- NOTE | 2018-09-14 11:47 | Internal Medicine Prog Note ---
Internal Medicine Subjective - Subjective Service Date: 09/14/18 (no events noted) Patient seen and examined:: without staff Patient is:: awake Per staff patient has:: no adverse event Internal Medicine Objective - Results Result Diagrams: 09/09/18 06:35 09/09/18 06:35 Recent Labs: Laboratory Last Values WBC 4.9 Th/cmm (4.8-10.8) 09/09/18 06:35 RBC 4.89 Mil/cmm (3.80-5.80) 09/09/18 06:35 Hgb 14.7 gm/dL (12-16) 09/09/18 06:35 Hct 43.8 % (41.0-60) 09/09/18 06:35 MCV 89.4 fl (80-99) 09/09/18 06:35 MCH 30.0 pg (27.0-31.0) 09/09/18 06:35 MCHC Differential 33.5 pg (28.0-36.0) 09/09/18 06:35 RDW 13.9 % (11.5-20.0) 09/09/18 06:35 Plt Count 216 Th/cmm (150-400) 09/09/18 06:35 MPV 8.2 fl 09/09/18 06:35 Neutrophils % 54.1 % (40.0-80.0) 09/09/18 06:35 Lymphocytes % 36.6 % (20.0-50.0) 09/09/18 06:35 Monocytes % 7.9 % (2.0-10.0) 09/09/18 06:35 Eosinophils % 0.8 % (0.0-5.0) 09/09/18 06:35 Basophils % 0.6 % (0.0-2.0) 09/09/18 06:35 Sodium 131 mEq/L (136-145) L 09/09/18 06:35 Potassium 4.2 mEq/L (3.5-5.1) 09/09/18 06:35 Chloride 95 mEq/L (98-107) L 09/09/18 06:35 Carbon Dioxide 28.6 mEq/L (21.0-31.0) 09/09/18 06:35 Anion Gap 11.6 (7.0-16.0) 09/09/18 06:35 BUN 13 mg/dL (7-25) 09/09/18 06:35 Creatinine 1.1 mg/dL (0.7-1.3) 09/09/18 06:35 Est GFR ( Amer) > 60.0 ml/min (>90) 09/09/18 06:35 Est GFR (Non-Af Amer) > 60.0 ml/min 09/09/18 06:35 BUN/Creatinine Ratio 11.8 09/09/18 06:35 Glucose 305 mg/dL (70-105) H 09/09/18 06:35 POC Glucose 111 MG/DL (70 - 105) H 09/11/18 16:59 Calcium 9.7 mg/dL (8.6-10.3) 09/09/18 06:35 Total Bilirubin 0.7 mg/dL (0.3-1.0) 09/09/18 06:35 AST 12 U/L (13-39) L 09/09/18 06:35 ALT 17 U/L (7-52) 09/09/18 06:35 Alkaline Phosphatase 70 U/L (34-104) 09/09/18 06:35 Total Protein 7.3 gm/dL (6.0-8.3) 09/09/18 06:35 Albumin 4.4 gm/dL (4.2-5.5) 09/09/18 06:35 Globulin 2.9 gm/dL 09/09/18 06:35 Albumin/Globulin Ratio 1.5 (1.0-1.8) 09/09/18 06:35 Triglycerides 135 mg/dL (<150) 09/08/18 16:00 Cholesterol 170 mg/dL (<200) 09/08/18 16:00 LDL Cholesterol Direct 105 mg/dL (75-193) 09/08/18 16:00 HDL Cholesterol 50 mg/dL (23-92) 09/08/18 16:00 TSH 1.23 uIU/ml (0.34-5.60) 09/09/18 06:35 - Physical Exam Vitals and I&O: Vital Signs Temp 97.9 F 09/14/18 06:04 Pulse 64 09/14/18 06:04 Resp 20 09/14/18 06:04 BP 118/77 09/14/18 06:04 Pulse Ox 97 09/14/18 06:04 Intake & Output 09/13/18 09/14/18 09/14/18 18:59 06:59 18:59 Intake Total 720 Balance 720 Intake: Oral 720 Other: # Voids 2 Active Medications: Current Medications Acetaminophen (Tylenol) 650 mg PO Q4HR PRN PRN Reason: Mild Pain / Temp above 100 Stop: 11/07/18 14:15 Last Admin: 09/13/18 09:40 Dose: 650 mg Al Hydrox/Mg Hydrox/Simethicone (Maalox) 30 ml PO Q4HR PRN PRN Reason: GI DISTRESS Stop: 11/07/18 14:15 Aspirin (Ecotrin) 81 mg PO DAILY [facility] Stop: 11/08/18 10:14 Last Admin: 09/14/18 08:06 Dose: 81 mg Benztropine Mesylate (Cogentin) 1 mg PO BID [facility] Stop: 11/10/18 08:59 Last Admin: 09/14/18 08:08 Dose: 1 mg Carbidopa/Levodopa (Sinemet 10 Mg-100 Mg) 2 tab PO AC [facility] Stop: 11/08/18 11:29 Last Admin: 09/14/18 06:38 Dose: 2 tab Entacapone (Comtan) 200 mg PO TID [facility] Stop: 11/08/18 13:59 Last Admin: 09/14/18 08:07 Dose: 200 mg Gabapentin (Neurontin) 300 mg PO TID [facility] Stop: 11/08/18 13:59 Last Admin: 09/14/18 08:07 Dose: 300 mg Insulin Human Lispro (Humalog Insulin Sliding Scale) 0 units SUBQ ACHS [facility]; Protocol Stop: 11/08/18 11:29 Last Admin: 09/14/18 07:04 Dose: 2 units Lorazepam (Ativan) 0.5 mg PO Q4HR PRN; Protocol PRN Reason: Anxiety Stop: 10/08/18 14:15 Last Admin: 09/14/18 08:07 Dose: 0.5 mg Magnesium Hydroxide (Milk Of Magnesia) 30 ml PO HS PRN PRN Reason: Constipation Metformin HCl (Glucophage) 500 mg PO BID [facility] Stop: 11/08/18 10:14 Last Admin: 09/14/18 08:06 Dose: 500 mg Quetiapine Fumarate (Seroquel) 25 mg PO BID [facility]; Protocol Stop: 11/08/18 16:59 Last Admin: 09/14/18 08:07 Dose: 25 mg Tamsulosin HCl (Flomax) 0.8 mg PO HS ANNMARIE Stop: 11/08/18 20:59 Last Admin: 09/13/18 20:34 Dose: 0.8 mg Zolpidem Tartrate (Ambien) 5 mg PO HS PRN PRN Reason: Insomnia Stop: 11/07/18 14:15 Last Admin: 09/08/18 21:34 Dose: 5 mg General: alert HEENT: NC/AT, EOMI, throat clear Neck: No JVD, No thyromegaly, No LAD Lungs: CTAB Cardiovascular: RRR, Normal S1, Normal S2, without murmur Extremities: clear Neurological: no change, no unsteady Internal Medicine Assmt/Plan - Assessment Assessment: ACUTE PSYCH DECOMPENSATION HISTORY OF SCHIZOPHRENIA HISTORY OF BIPOLAR D/O HISTORY OF DM-2 HISTORY OF PERIPHERAL NEUROPATHY HISTORY OF PARKINSON'S DISEASE HISTORY OF NICOTINE DEPENDENCE HISTORY OF BPH HYPONATREMIA - Plan Plan: CONT WITH CURRENT IN-PATIENT PSYCH SUPPORTIVE CARE AND MGT CONT WITH SINEMET/COMTAM SCHEDULED CONT WITH GLUCOPHAGE 500MG BID CONT WITH NEURONTIN SCHEDULED CONT WITH FLOMAX SCHEDULED Nutritional Asmnt/Malnutr-PDOC - Dietary Evaluation Malnutrition Findings (Please click <Entered> for more info): Nutritional Asmnt/Malnutrition Start: 09/09/18 16: 33 Text: Status: Complete Freq: Protocol: Document 09/09/18 16:33 LCHENG (Rec: 09/09/18 16:42 [email or web address]) Nutritional Asmnt/Malnutrition Patient General Information Nutritional Screening High Risk Consult Diagnosis psychosis NOS Pertinent Medical Hx/Surgical Hx no H&P as of now Subjective Information Consult received for DM. Pt seen walking in hallway, stated food is ok. Not able to obtain more nutrition information or provide diabetic education d/t pt mental status. Per EMR, PO intake 100%. Current Diet Order/ Nutrition Support CCHO 60gm Pertinent Medications humalog, glucophage, seroquel Pertinent Labs 09/09 Na 131, Cl 95, Glucose 305 Nutritional Hx/Data Height 1.75 m Height (Calculated Centimeters) 175.3 Current Weight (lbs) 83.915 kg Weight (Calculated Kilograms) 83.9 Weight (Calculated Grams) 36285.6 [place] Body Weight 160 Body Mass Index (BMI) 27.3 Weight Status Overweight GI Symptoms GI Symptoms None Last BM none Difficult in: None Skin Integrity/Comment: intact Current %PO Good (75-100%) Estimated Nutritional Goals BEE in Kcals: Using Current wt Calories/Kcals/Kg 23-27 Kcals Calculated 4112-3241 Protein: Using Current wt Protein g/k Protein Calculated 84 Fluid: ml 1932-2268ml (1ml/kcal) Nutritional Problem 1. Problem Problem altered nutrition related labs Etiology hyperglycemia Signs/Symptoms: glucose 305 Malnutrition Alert Is there a minimum of two criteria No selected? Query Text:Check all the applicable criteria. A minimum of two criteria are recommended for diagnosis of either severe or non-severe malnutrition. Malnutrition Related to Morbid Obesity Malnutrition related to morbid obesity No Intervention/Recommendation Comments 1. [facility] as [facility]. MD to adjust insulin regimen for optimal glycemic control 2. Monitor PO intake, wt, labs and skin integrity 3. F/U as moderate risk in 3-5 days Expected Outcomes/Goals Expected Outcomes/Goals 1. PO intake to meet at least 75% of nutritional needs. 2. Wt stability, skin to remain intact, labs to approach WNL.
--- NOTE | 2018-09-15 03:13 | Progress Notes ---
DATE: 09/14/2018 SUBJECTIVE: The patient was seen and evaluated. The patient's chart reviewed. Today on [id number] evaluation, the patient reported his mood is slightly getting better. He reports no voices and less intense than before. MENTAL STATUS EXAMINATION: Less voices, more optimistic. No complication. ASSESSMENT AND PLAN: History of unspecified mood disorder. Trying to show better improvement. With the current medication regimen the patient of the Cogentin to target the patient's EPS, which have now resolved. JOB# [id number]
[2018-09-15] MEDS: Carbidopa/Levodopa 10/100 mg Tab PO SCH ×3 (06:37→16:38)
[2018-09-15] MEDS: INSULIN LISPRO SLIDING SCALE 100 UNITS/ML UNIT SUBQ SCH ×4 (06:38→21:03)
[2018-09-15] MEDS: Multivitamin w/ Minerals Tab PO SCH (08:46)
--- NOTE | 2018-09-15 20:44 | Progress Notes ---
DATE: 09/15/2018 Case was discussed with staff of the patient, reviewed records. Covering for Dr. Castellanos. This is a 67-year-old male who was admitted on 09/08/2018. The patient was psychotic. He does not feel safe outside the hospital setting. He was endorsing psychological distress ____. The patient was having difficult time coping with his negative thoughts, feeling pessimistic. He sleeps well. He eats well. He is diagnosed with schizophrenia. The patient has been compliant with the medication with no side effects. Continues to be overwhelmed, easily agitated. He is on Seroquel 25 mg twice a day, gabapentin 300 mg 3 times a day. Continues to be not ready to go to a lesser level of care because of psychosis though the voices are a little bit better and we will continue outpatient group therapy, milieu therapy, adjust medication as needed. [facility]# [id number]
--- NOTE | 2018-09-15 22:14 | Internal Medicine Prog Note ---
Internal Medicine Subjective - Subjective Service Date: 09/15/18 (no major changes) Patient is:: awake Per staff patient has:: no adverse event Internal Medicine Objective - Results Result Diagrams: 09/09/18 06:35 09/09/18 06:35 Recent Labs: Laboratory Last Values WBC 4.9 Th/cmm (4.8-10.8) 09/09/18 06:35 RBC 4.89 Mil/cmm (3.80-5.80) 09/09/18 06:35 Hgb 14.7 gm/dL (12-16) 09/09/18 06:35 Hct 43.8 % (41.0-60) 09/09/18 06:35 MCV 89.4 fl (80-99) 09/09/18 06:35 MCH 30.0 pg (27.0-31.0) 09/09/18 06:35 MCHC Differential 33.5 pg (28.0-36.0) 09/09/18 06:35 RDW 13.9 % (11.5-20.0) 09/09/18 06:35 Plt Count 216 Th/cmm (150-400) 09/09/18 06:35 MPV 8.2 fl 09/09/18 06:35 Neutrophils % 54.1 % (40.0-80.0) 09/09/18 06:35 Lymphocytes % 36.6 % (20.0-50.0) 09/09/18 06:35 Monocytes % 7.9 % (2.0-10.0) 09/09/18 06:35 Eosinophils % 0.8 % (0.0-5.0) 09/09/18 06:35 Basophils % 0.6 % (0.0-2.0) 09/09/18 06:35 Sodium 131 mEq/L (136-145) L 09/09/18 06:35 Potassium 4.2 mEq/L (3.5-5.1) 09/09/18 06:35 Chloride 95 mEq/L (98-107) L 09/09/18 06:35 Carbon Dioxide 28.6 mEq/L (21.0-31.0) 09/09/18 06:35 Anion Gap 11.6 (7.0-16.0) 09/09/18 06:35 BUN 13 mg/dL (7-25) 09/09/18 06:35 Creatinine 1.1 mg/dL (0.7-1.3) 09/09/18 06:35 Est GFR ( Amer) > 60.0 ml/min (>90) 09/09/18 06:35 Est GFR (Non-Af Amer) > 60.0 ml/min 09/09/18 06:35 BUN/Creatinine Ratio 11.8 09/09/18 06:35 Glucose 305 mg/dL (70-105) H 09/09/18 06:35 POC Glucose 111 MG/DL (70 - 105) H 09/11/18 16:59 Calcium 9.7 mg/dL (8.6-10.3) 09/09/18 06:35 Total Bilirubin 0.7 mg/dL (0.3-1.0) 09/09/18 06:35 AST 12 U/L (13-39) L 09/09/18 06:35 ALT 17 U/L (7-52) 09/09/18 06:35 Alkaline Phosphatase 70 U/L (34-104) 09/09/18 06:35 Total Protein 7.3 gm/dL (6.0-8.3) 09/09/18 06:35 Albumin 4.4 gm/dL (4.2-5.5) 09/09/18 06:35 Globulin 2.9 gm/dL 09/09/18 06:35 Albumin/Globulin Ratio 1.5 (1.0-1.8) 09/09/18 06:35 Triglycerides 135 mg/dL (<150) 09/08/18 16:00 Cholesterol 170 mg/dL (<200) 09/08/18 16:00 LDL Cholesterol Direct 105 mg/dL (75-193) 09/08/18 16:00 HDL Cholesterol 50 mg/dL (23-92) 09/08/18 16:00 TSH 1.23 uIU/ml (0.34-5.60) 09/09/18 06:35 - Physical Exam Vitals and I&O: Vital Signs Temp 97.9 F 09/15/18 20:37 Pulse 70 09/15/18 20:37 Resp 20 09/15/18 20:37 BP 116/73 09/15/18 20:37 Pulse Ox 97 09/15/18 20:37 Intake & Output 09/15/18 09/15/18 09/16/18 06:59 18:59 06:59 Intake Total 420 1000 240 Balance 420 1000 240 Intake: Oral 420 1000 240 Other: # Voids 2 3 2 # Bowel Movements 0 0 1 Active Medications: Current Medications Acetaminophen (Tylenol) 650 mg PO Q4HR PRN PRN Reason: Mild Pain / Temp above 100 Stop: 11/07/18 14:15 Last Admin: 09/13/18 09:40 Dose: 650 mg Al Hydrox/Mg Hydrox/Simethicone (Maalox) 30 ml PO Q4HR PRN PRN Reason: GI DISTRESS Stop: 11/07/18 14:15 Aspirin (Ecotrin) 81 mg PO DAILY [facility] Stop: 11/08/18 10:14 Last Admin: 09/15/18 08:46 Dose: 81 mg Benztropine Mesylate (Cogentin) 1 mg PO BID [facility] Stop: 11/10/18 08:59 Last Admin: 09/15/18 16:40 Dose: 1 mg Carbidopa/Levodopa (Sinemet 10 Mg-100 Mg) 2 tab PO AC [facility] Stop: 11/08/18 11:29 Last Admin: 09/15/18 16:38 Dose: 2 tab Entacapone (Comtan) 200 mg PO TID [facility] Stop: 11/08/18 13:59 Last Admin: 09/15/18 21:03 Dose: 200 mg Gabapentin (Neurontin) 300 mg PO TID [facility] Stop: 11/08/18 13:59 Last Admin: 09/15/18 21:03 Dose: 300 mg Insulin Human Lispro (Humalog Insulin Sliding Scale) 0 units SUBQ ACHS [facility]; Protocol Stop: 11/08/18 11:29 Last Admin: 09/15/18 21:03 Dose: 8 units Lorazepam (Ativan) 0.5 mg PO Q4HR PRN; Protocol PRN Reason: Anxiety Stop: 10/08/18 14:15 Last Admin: 09/14/18 08:07 Dose: 0.5 mg Magnesium Hydroxide (Milk Of Magnesia) 30 ml PO HS PRN PRN Reason: Constipation Metformin HCl (Glucophage) 500 mg PO BID [facility] Stop: 11/08/18 10:14 Last Admin: 09/15/18 16:40 Dose: 500 mg Quetiapine Fumarate (Seroquel) 25 mg PO BID [facility]; Protocol Stop: 11/08/18 16:59 Last Admin: 09/15/18 16:45 Dose: 25 mg Tamsulosin HCl (Flomax) 0.8 mg PO HS [facility] Stop: 11/08/18 20:59 Last Admin: 09/15/18 21:02 Dose: 0.8 mg Zolpidem Tartrate (Ambien) 5 mg PO HS PRN PRN Reason: Insomnia Stop: 11/07/18 14:15 Last Admin: 09/15/18 00:15 Dose: 5 mg General: alert HEENT: NC/AT, EOMI, throat clear Neck: No JVD, No thyromegaly, No LAD Lungs: CTAB Cardiovascular: RRR, Normal S1, Normal S2, without murmur Extremities: clear Neurological: no change, no unsteady Internal Medicine Assmt/Plan - Assessment Assessment: ACUTE PSYCH DECOMPENSATION HISTORY OF SCHIZOPHRENIA HISTORY OF BIPOLAR D/O HISTORY OF DM-2 HISTORY OF PERIPHERAL NEUROPATHY HISTORY OF PARKINSON'S DISEASE HISTORY OF NICOTINE DEPENDENCE HISTORY OF BPH HYPONATREMIA - Plan Plan: CONT WITH CURRENT IN-PATIENT PSYCH SUPPORTIVE CARE AND MGT CONT WITH SINEMET/COMTAM SCHEDULED CONT WITH GLUCOPHAGE 500MG BID CONT WITH NEURONTIN SCHEDULED CONT WITH FLOMAX SCHEDULED Nutritional Asmnt/Malnutr-PDOC - Dietary Evaluation Malnutrition Findings (Please click <Entered> for more info): Nutritional Asmnt/Malnutrition Start: 09/09/18 16: 33 Text: Status: Complete Freq: Protocol: Document 09/09/18 16:33 LCHENG (Rec: 09/09/18 16:42 [email or web address]) Nutritional Asmnt/Malnutrition Patient General Information Nutritional Screening High Risk Consult Diagnosis psychosis NOS Pertinent Medical Hx/Surgical Hx no H&P as of now Subjective Information Consult received for DM. Pt seen walking in hallway, stated food is ok. Not able to obtain more nutrition information or provide diabetic education d/t pt mental status. Per EMR, PO intake 100%. Current Diet Order/ Nutrition Support CCHO 60gm Pertinent Medications humalog, glucophage, seroquel Pertinent Labs 09/09 Na 131, Cl 95, Glucose 305 Nutritional Hx/Data Height 1.75 m Height (Calculated Centimeters) 175.3 Current Weight (lbs) 83.915 kg Weight (Calculated Kilograms) 83.9 Weight (Calculated Grams) 56885.6 [place] Body Weight 160 Body Mass Index (BMI) 27.3 Weight Status Overweight GI Symptoms GI Symptoms None Last BM none Difficult in: None Skin Integrity/Comment: intact Current %PO Good (75-100%) Estimated Nutritional Goals BEE in Kcals: Using Current wt Calories/Kcals/Kg 23-27 Kcals Calculated 7264-9072 Protein: Using Current wt Protein g/k Protein Calculated 84 Fluid: ml 1932-2268ml (1ml/kcal) Nutritional Problem 1. Problem Problem altered nutrition related labs Etiology hyperglycemia Signs/Symptoms: glucose 305 Malnutrition Alert Is there a minimum of two criteria No selected? Query Text:Check all the applicable criteria. A minimum of two criteria are recommended for diagnosis of either severe or non-severe malnutrition. Malnutrition Related to Morbid Obesity Malnutrition related to morbid obesity No Intervention/Recommendation Comments 1. Continue with [facility] 60gm diet as ordered. MD to adjust insulin regimen for optimal glycemic control 2. Monitor PO intake, wt, labs and skin integrity 3. F/U as moderate risk in 3-5 days Expected Outcomes/Goals Expected Outcomes/Goals 1. PO intake to meet at least 75% of nutritional needs. 2. Wt stability, skin to remain intact, labs to approach WNL.
[2018-09-16] MEDS: Carbidopa/Levodopa 10/100 mg Tab PO SCH ×3 (06:46→17:41)
[2018-09-16] MEDS: INSULIN LISPRO SLIDING SCALE 100 UNITS/ML UNIT SUBQ SCH ×4 (06:51→21:01)
[2018-09-16] MEDS: Multivitamin w/ Minerals Tab PO SCH (09:17)
--- NOTE | 2018-09-16 10:07 | Internal Medicine Prog Note ---
Internal Medicine Subjective - Subjective Service Date: 09/16/18 (on wheelchair, comfortable) Patient is:: awake Per staff patient has:: no adverse event Internal Medicine Objective - Results Result Diagrams: 09/09/18 06:35 09/09/18 06:35 Recent Labs: Laboratory Last Values WBC 4.9 Th/cmm (4.8-10.8) 09/09/18 06:35 RBC 4.89 Mil/cmm (3.80-5.80) 09/09/18 06:35 Hgb 14.7 gm/dL (12-16) 09/09/18 06:35 Hct 43.8 % (41.0-60) 09/09/18 06:35 MCV 89.4 fl (80-99) 09/09/18 06:35 MCH 30.0 pg (27.0-31.0) 09/09/18 06:35 MCHC Differential 33.5 pg (28.0-36.0) 09/09/18 06:35 RDW 13.9 % (11.5-20.0) 09/09/18 06:35 Plt Count 216 Th/cmm (150-400) 09/09/18 06:35 MPV 8.2 fl 09/09/18 06:35 Neutrophils % 54.1 % (40.0-80.0) 09/09/18 06:35 Lymphocytes % 36.6 % (20.0-50.0) 09/09/18 06:35 Monocytes % 7.9 % (2.0-10.0) 09/09/18 06:35 Eosinophils % 0.8 % (0.0-5.0) 09/09/18 06:35 Basophils % 0.6 % (0.0-2.0) 09/09/18 06:35 Sodium 131 mEq/L (136-145) L 09/09/18 06:35 Potassium 4.2 mEq/L (3.5-5.1) 09/09/18 06:35 Chloride 95 mEq/L (98-107) L 09/09/18 06:35 Carbon Dioxide 28.6 mEq/L (21.0-31.0) 09/09/18 06:35 Anion Gap 11.6 (7.0-16.0) 09/09/18 06:35 BUN 13 mg/dL (7-25) 09/09/18 06:35 Creatinine 1.1 mg/dL (0.7-1.3) 09/09/18 06:35 Est GFR ( Amer) > 60.0 ml/min (>90) 09/09/18 06:35 Est GFR (Non-Af Amer) > 60.0 ml/min 09/09/18 06:35 BUN/Creatinine Ratio 11.8 09/09/18 06:35 Glucose 305 mg/dL (70-105) H 09/09/18 06:35 POC Glucose 111 MG/DL (70 - 105) H 09/11/18 16:59 Calcium 9.7 mg/dL (8.6-10.3) 09/09/18 06:35 Total Bilirubin 0.7 mg/dL (0.3-1.0) 09/09/18 06:35 AST 12 U/L (13-39) L 09/09/18 06:35 ALT 17 U/L (7-52) 09/09/18 06:35 Alkaline Phosphatase 70 U/L (34-104) 09/09/18 06:35 Total Protein 7.3 gm/dL (6.0-8.3) 09/09/18 06:35 Albumin 4.4 gm/dL (4.2-5.5) 09/09/18 06:35 Globulin 2.9 gm/dL 09/09/18 06:35 Albumin/Globulin Ratio 1.5 (1.0-1.8) 09/09/18 06:35 Triglycerides 135 mg/dL (<150) 09/08/18 16:00 Cholesterol 170 mg/dL (<200) 09/08/18 16:00 LDL Cholesterol Direct 105 mg/dL (75-193) 09/08/18 16:00 HDL Cholesterol 50 mg/dL (23-92) 09/08/18 16:00 TSH 1.23 uIU/ml (0.34-5.60) 09/09/18 06:35 - Physical Exam Vitals and I&O: Vital Signs Temp 98.2 F 09/16/18 06:37 Pulse 102 09/16/18 06:37 Resp 20 09/16/18 06:37 BP 128/83 09/16/18 06:37 Pulse Ox 97 09/16/18 06:37 Intake & Output 09/15/18 09/16/18 09/16/18 18:59 06:59 18:59 Intake Total 1000 600 Balance 1000 600 Intake: Oral 1000 600 Other: # Voids 3 2 # Bowel Movements 0 0 Active Medications: Current Medications Acetaminophen (Tylenol) 650 mg PO Q4HR PRN PRN Reason: Mild Pain / Temp above 100 Stop: 11/07/18 14:15 Last Admin: 09/13/18 09:40 Dose: 650 mg Al Hydrox/Mg Hydrox/Simethicone (Maalox) 30 ml PO Q4HR PRN PRN Reason: GI DISTRESS Stop: 11/07/18 14:15 Aspirin (Ecotrin) 81 mg PO DAILY [facility] Stop: 11/08/18 10:14 Last Admin: 09/16/18 09:16 Dose: 81 mg Benztropine Mesylate (Cogentin) 1 mg PO BID [facility] Stop: 11/10/18 08:59 Last Admin: 09/16/18 09:16 Dose: 1 mg Carbidopa/Levodopa (Sinemet 10 Mg-100 Mg) 2 tab PO AC [facility] Stop: 11/08/18 11:29 Last Admin: 09/16/18 06:46 Dose: 2 tab Entacapone (Comtan) 200 mg PO TID [facility] Stop: 11/08/18 13:59 Last Admin: 09/16/18 09:16 Dose: 200 mg Gabapentin (Neurontin) 300 mg PO TID [facility] Stop: 11/08/18 13:59 Last Admin: 09/16/18 09:17 Dose: 300 mg Insulin Human Lispro (Humalog Insulin Sliding Scale) 0 units SUBQ ACHS [facility]; Protocol Stop: 11/08/18 11:29 Last Admin: 09/16/18 06:51 Dose: Not Given Lorazepam (Ativan) 0.5 mg PO Q4HR PRN; Protocol PRN Reason: Anxiety Stop: 10/08/18 14:15 Last Admin: 09/14/18 08:07 Dose: 0.5 mg Magnesium Hydroxide (Milk Of Magnesia) 30 ml PO HS PRN PRN Reason: Constipation Metformin HCl (Glucophage) 500 mg PO BID [facility] Stop: 11/08/18 10:14 Last Admin: 09/16/18 09:16 Dose: 500 mg Quetiapine Fumarate (Seroquel) 25 mg PO BID [facility]; Protocol Stop: 11/08/18 16:59 Last Admin: 09/16/18 09:16 Dose: 25 mg Tamsulosin HCl (Flomax) 0.8 mg PO HS [facility] Stop: 11/08/18 20:59 Last Admin: 09/15/18 21:02 Dose: 0.8 mg Zolpidem Tartrate (Ambien) 5 mg PO HS PRN PRN Reason: Insomnia Stop: 11/07/18 14:15 Last Admin: 09/15/18 22:15 Dose: 5 mg General: alert HEENT: NC/AT, EOMI, throat clear Neck: No JVD, No thyromegaly, No LAD Lungs: CTAB Cardiovascular: RRR, Normal S1, Normal S2, without murmur Extremities: clear Neurological: no change, no unsteady Internal Medicine Assmt/Plan - Assessment Assessment: ACUTE PSYCH DECOMPENSATION HISTORY OF SCHIZOPHRENIA HISTORY OF BIPOLAR D/O HISTORY OF DM-2 HISTORY OF PERIPHERAL NEUROPATHY HISTORY OF PARKINSON'S DISEASE HISTORY OF NICOTINE DEPENDENCE HISTORY OF BPH HYPONATREMIA - Plan Plan: CONT WITH CURRENT IN-PATIENT PSYCH SUPPORTIVE CARE AND MGT CONT WITH SINEMET/COMTAM SCHEDULED CONT WITH GLUCOPHAGE 500MG BID CONT WITH NEURONTIN SCHEDULED CONT WITH FLOMAX SCHEDULED Nutritional Asmnt/Malnutr-PDOC - Dietary Evaluation Malnutrition Findings (Please click <Entered> for more info): Nutritional Asmnt/Malnutrition Start: 09/09/18 16: 33 Text: Status: Complete Freq: Protocol: Document 09/09/18 16:33 LCHENG (Rec: 09/09/18 16:42 [email or web address]) Nutritional Asmnt/Malnutrition Patient General Information Nutritional Screening High Risk Consult Diagnosis psychosis NOS Pertinent Medical Hx/Surgical Hx no H&P as of now Subjective Information Consult received for DM. Pt seen walking in hallway, stated food is ok. Not able to obtain more nutrition information or provide diabetic education d/t pt mental status. Per EMR, PO intake 100%. Current Diet Order/ Nutrition Support CCHO 60gm Pertinent Medications humalog, glucophage, seroquel Pertinent Labs 09/09 Na 131, Cl 95, Glucose 305 Nutritional Hx/Data Height 1.75 m Height (Calculated Centimeters) 175.3 Current Weight (lbs) 83.915 kg Weight (Calculated Kilograms) 83.9 Weight (Calculated Grams) 48692.6 [place] Body Weight 160 Body Mass Index (BMI) 27.3 Weight Status Overweight GI Symptoms GI Symptoms None Last BM none Difficult in: None Skin Integrity/Comment: intact Current %PO Good (75-100%) Estimated Nutritional Goals BEE in Kcals: Using Current wt Calories/Kcals/Kg 23-27 Kcals Calculated 2130-1946 Protein: Using Current wt Protein g/k Protein Calculated 84 Fluid: ml 1932-2268ml (1ml/kcal) Nutritional Problem 1. Problem Problem altered nutrition related labs Etiology hyperglycemia Signs/Symptoms: glucose 305 Malnutrition Alert Is there a minimum of two criteria No selected? Query Text:Check all the applicable criteria. A minimum of two criteria are recommended for diagnosis of either severe or non-severe malnutrition. Malnutrition Related to Morbid Obesity Malnutrition related to morbid obesity No Intervention/Recommendation Comments 1. Continue with [facility] 60gm diet as ordered. MD to adjust insulin regimen for optimal glycemic control 2. Monitor PO intake, wt, labs and skin integrity 3. F/U as moderate risk in 3-5 days Expected Outcomes/Goals Expected Outcomes/Goals 1. PO intake to meet at least 75% of nutritional needs. 2. Wt stability, skin to remain intact, labs to approach WNL.
--- NOTE | 2018-09-17 00:20 | Progress Notes ---
DATE: 09/16/2018 SUBJECTIVE: Case was discussed with staff of the patient, reviewed records. Covering for Dr. Castellanos. The patient continues to be overwhelmed, irritable, and easily agitated. Continues to have poor insight. Continues to isolate himself, staying in his room. He is compliant with the medication with no side effects, no sedation or nausea, no extrapyramidal symptoms. We will continue to work with the patient in group therapy, milieu therapy, and adjust medication as needed. JOB# [id number]
[2018-09-17] MEDS: INSULIN LISPRO SLIDING SCALE 100 UNITS/ML UNIT SUBQ SCH ×4 (06:31→20:30)
[2018-09-17] MEDS: Carbidopa/Levodopa 10/100 mg Tab PO SCH ×3 (06:31→16:42)
[2018-09-17] MEDS: Multivitamin w/ Minerals Tab PO SCH (09:26)
[2018-09-17] MEDS ORDERED: Benztropine 1 MG TAB PO SCH (17:00)
--- NOTE | 2018-09-17 23:01 | Internal Medicine Prog Note ---
Internal Medicine Subjective - Subjective Service Date: 09/17/18 (NO EVENTS) Patient is:: awake Per staff patient has:: no adverse event Internal Medicine Objective - Results Result Diagrams: 09/09/18 06:35 09/09/18 06:35 Recent Labs: Laboratory Last Values WBC 4.9 Th/cmm (4.8-10.8) 09/09/18 06:35 RBC 4.89 Mil/cmm (3.80-5.80) 09/09/18 06:35 Hgb 14.7 gm/dL (12-16) 09/09/18 06:35 Hct 43.8 % (41.0-60) 09/09/18 06:35 MCV 89.4 fl (80-99) 09/09/18 06:35 MCH 30.0 pg (27.0-31.0) 09/09/18 06:35 MCHC Differential 33.5 pg (28.0-36.0) 09/09/18 06:35 RDW 13.9 % (11.5-20.0) 09/09/18 06:35 Plt Count 216 Th/cmm (150-400) 09/09/18 06:35 MPV 8.2 fl 09/09/18 06:35 Neutrophils % 54.1 % (40.0-80.0) 09/09/18 06:35 Lymphocytes % 36.6 % (20.0-50.0) 09/09/18 06:35 Monocytes % 7.9 % (2.0-10.0) 09/09/18 06:35 Eosinophils % 0.8 % (0.0-5.0) 09/09/18 06:35 Basophils % 0.6 % (0.0-2.0) 09/09/18 06:35 Sodium 131 mEq/L (136-145) L 09/09/18 06:35 Potassium 4.2 mEq/L (3.5-5.1) 09/09/18 06:35 Chloride 95 mEq/L (98-107) L 09/09/18 06:35 Carbon Dioxide 28.6 mEq/L (21.0-31.0) 09/09/18 06:35 Anion Gap 11.6 (7.0-16.0) 09/09/18 06:35 BUN 13 mg/dL (7-25) 09/09/18 06:35 Creatinine 1.1 mg/dL (0.7-1.3) 09/09/18 06:35 Est GFR ( Amer) > 60.0 ml/min (>90) 09/09/18 06:35 Est GFR (Non-Af Amer) > 60.0 ml/min 09/09/18 06:35 BUN/Creatinine Ratio 11.8 09/09/18 06:35 Glucose 305 mg/dL (70-105) H 09/09/18 06:35 POC Glucose 238 MG/DL (70 - 105) H 09/16/18 20:50 Calcium 9.7 mg/dL (8.6-10.3) 09/09/18 06:35 Total Bilirubin 0.7 mg/dL (0.3-1.0) 09/09/18 06:35 AST 12 U/L (13-39) L 09/09/18 06:35 ALT 17 U/L (7-52) 09/09/18 06:35 Alkaline Phosphatase 70 U/L (34-104) 09/09/18 06:35 Total Protein 7.3 gm/dL (6.0-8.3) 09/09/18 06:35 Albumin 4.4 gm/dL (4.2-5.5) 09/09/18 06:35 Globulin 2.9 gm/dL 09/09/18 06:35 Albumin/Globulin Ratio 1.5 (1.0-1.8) 09/09/18 06:35 Triglycerides 135 mg/dL (<150) 09/08/18 16:00 Cholesterol 170 mg/dL (<200) 09/08/18 16:00 LDL Cholesterol Direct 105 mg/dL (75-193) 09/08/18 16:00 HDL Cholesterol 50 mg/dL (23-92) 09/08/18 16:00 TSH 1.23 uIU/ml (0.34-5.60) 09/09/18 06:35 - Physical Exam Vitals and I&O: Vital Signs Temp 98.8 F 09/17/18 20:30 Pulse 86 09/17/18 20:30 Resp 20 09/17/18 20:30 BP 129/77 09/17/18 20:30 Pulse Ox 97 09/17/18 20:30 Intake & Output 09/17/18 09/17/18 09/18/18 06:59 18:59 06:59 Intake Total 540 1500 Balance 540 1500 Intake: Oral 540 1500 Other: # Voids 2 3 # Bowel Movements 0 0 Active Medications: Current Medications Acetaminophen (Tylenol) 650 mg PO Q4HR PRN PRN Reason: Mild Pain / Temp above 100 Stop: 11/07/18 14:15 Last Admin: 09/13/18 09:40 Dose: 650 mg Al Hydrox/Mg Hydrox/Simethicone (Maalox) 30 ml PO Q4HR PRN PRN Reason: GI DISTRESS Stop: 11/07/18 14:15 Aspirin (Ecotrin) 81 mg PO DAILY [facility] Stop: 11/08/18 10:14 Last Admin: 09/17/18 09:26 Dose: 81 mg Benztropine Mesylate (Cogentin) 1 mg PO BID [facility] Stop: 11/10/18 16:59 Carbidopa/Levodopa (Sinemet 10 Mg-100 Mg) 2 tab PO AC [facility] Stop: 11/08/18 11:29 Last Admin: 09/17/18 16:42 Dose: 2 tab Entacapone (Comtan) 200 mg PO TID [facility] Stop: 11/08/18 13:59 Last Admin: 09/17/18 20:30 Dose: 200 mg Gabapentin (Neurontin) 300 mg PO TID [facility] Stop: 11/08/18 13:59 Last Admin: 09/17/18 20:30 Dose: 300 mg Insulin Human Lispro (Humalog Insulin Sliding Scale) 0 units SUBQ ACHS [facility]; Protocol Stop: 11/08/18 11:29 Last Admin: 09/17/18 20:30 Dose: 8 units Lorazepam (Ativan) 0.5 mg PO Q4HR PRN; Protocol PRN Reason: Anxiety Stop: 10/08/18 14:15 Last Admin: 09/14/18 08:07 Dose: 0.5 mg Magnesium Hydroxide (Milk Of Magnesia) 30 ml PO HS PRN PRN Reason: Constipation Metformin HCl (Glucophage) 500 mg PO BID [facility] Stop: 11/08/18 10:14 Last Admin: 09/17/18 16:42 Dose: 500 mg Quetiapine Fumarate (Seroquel) 25 mg PO BID [facility]; Protocol Stop: 11/08/18 16:59 Last Admin: 09/17/18 16:42 Dose: 25 mg Tamsulosin HCl (Flomax) 0.8 mg PO HS [facility] Stop: 11/08/18 20:59 Last Admin: 09/17/18 20:30 Dose: 0.8 mg Zolpidem Tartrate (Ambien) 5 mg PO HS PRN PRN Reason: Insomnia Stop: 11/07/18 14:15 Last Admin: 09/17/18 01:07 Dose: 5 mg General: alert HEENT: NC/AT, EOMI, throat clear Neck: No JVD, No thyromegaly, No LAD Lungs: CTAB Cardiovascular: RRR, Normal S1, Normal S2, without murmur Extremities: clear Neurological: no change, no unsteady Internal Medicine Assmt/Plan - Assessment Assessment: ACUTE PSYCH DECOMPENSATION HISTORY OF SCHIZOPHRENIA HISTORY OF BIPOLAR D/O HISTORY OF DM-2 HISTORY OF PERIPHERAL NEUROPATHY HISTORY OF PARKINSON'S DISEASE HISTORY OF NICOTINE DEPENDENCE HISTORY OF BPH HYPONATREMIA - Plan Plan: CONT WITH CURRENT IN-PATIENT PSYCH SUPPORTIVE CARE AND MGT CONT WITH SINEMET/COMTAM SCHEDULED CONT WITH GLUCOPHAGE 500MG BID CONT WITH NEURONTIN SCHEDULED CONT WITH FLOMAX SCHEDULED Nutritional Asmnt/Malnutr-PDOC - Dietary Evaluation Malnutrition Findings (Please click <Entered> for more info): Nutritional Asmnt/Malnutrition Start: 09/09/18 16: 33 Text: Status: Complete Freq: Protocol: Document 09/09/18 16:33 LCHENG (Rec: 09/09/18 16:42 LCHENG [email or web address]) Nutritional Asmnt/Malnutrition Patient General Information Nutritional Screening High Risk Consult Diagnosis psychosis NOS Pertinent Medical Hx/Surgical Hx no H&P as of now Subjective Information Consult received for DM. Pt seen walking in hallway, stated food is ok. Not able to obtain more nutrition information or provide diabetic education d/t pt mental status. Per EMR, PO intake 100%. Current Diet Order/ Nutrition Support CCHO 60gm Pertinent Medications humalog, glucophage, seroquel Pertinent Labs 09/09 Na 131, Cl 95, Glucose 305 Nutritional Hx/Data Height 1.75 m Height (Calculated Centimeters) 175.3 Current Weight (lbs) 83.915 kg Weight (Calculated Kilograms) 83.9 Weight (Calculated Grams) 57295.6 [place] Body Weight 160 Body Mass Index (BMI) 27.3 Weight Status Overweight GI Symptoms GI Symptoms None Last BM none Difficult in: None Skin Integrity/Comment: intact Current %PO Good (75-100%) Estimated Nutritional Goals BEE in Kcals: Using Current wt Calories/Kcals/Kg 23-27 Kcals Calculated 8875-0581 Protein: Using Current wt Protein g/k Protein Calculated 84 Fluid: ml 1932-2268ml (1ml/kcal) Nutritional Problem 1. Problem Problem altered nutrition related labs Etiology hyperglycemia Signs/Symptoms: glucose 305 Malnutrition Alert Is there a minimum of two criteria No selected? Query Text:Check all the applicable criteria. A minimum of two criteria are recommended for diagnosis of either severe or non-severe malnutrition. Malnutrition Related to Morbid Obesity Malnutrition related to morbid obesity No Intervention/Recommendation Comments 1. Continue with [facility] 60gm diet as ordered. MD to adjust insulin regimen for optimal glycemic control 2. Monitor PO intake, wt, labs and skin integrity 3. F/U as moderate risk in 3-5 days Expected Outcomes/Goals Expected Outcomes/Goals 1. PO intake to meet at least 75% of nutritional needs. 2. Wt stability, skin to remain intact, labs to approach WNL.
[2018-09-18] MEDS: Carbidopa/Levodopa 10/100 mg Tab PO SCH ×2 (06:36→11:10)
[2018-09-18] MEDS: INSULIN LISPRO SLIDING SCALE 100 UNITS/ML UNIT SUBQ SCH ×2 (06:37→11:10)
[2018-09-18] MEDS: Multivitamin w/ Minerals Tab PO SCH (08:53)
--- NOTE | 2018-09-18 09:21 | Internal Medicine Prog Note ---
Internal Medicine Subjective - Subjective Service Date: 09/18/18 (no distress or events) Patient seen and examined:: without staff Patient is:: awake Per staff patient has:: no adverse event Internal Medicine Objective - Results Result Diagrams: 09/09/18 06:35 09/09/18 06:35 Recent Labs: Laboratory Last Values WBC 4.9 Th/cmm (4.8-10.8) 09/09/18 06:35 RBC 4.89 Mil/cmm (3.80-5.80) 09/09/18 06:35 Hgb 14.7 gm/dL (12-16) 09/09/18 06:35 Hct 43.8 % (41.0-60) 09/09/18 06:35 MCV 89.4 fl (80-99) 09/09/18 06:35 MCH 30.0 pg (27.0-31.0) 09/09/18 06:35 MCHC Differential 33.5 pg (28.0-36.0) 09/09/18 06:35 RDW 13.9 % (11.5-20.0) 09/09/18 06:35 Plt Count 216 Th/cmm (150-400) 09/09/18 06:35 MPV 8.2 fl 09/09/18 06:35 Neutrophils % 54.1 % (40.0-80.0) 09/09/18 06:35 Lymphocytes % 36.6 % (20.0-50.0) 09/09/18 06:35 Monocytes % 7.9 % (2.0-10.0) 09/09/18 06:35 Eosinophils % 0.8 % (0.0-5.0) 09/09/18 06:35 Basophils % 0.6 % (0.0-2.0) 09/09/18 06:35 Sodium 131 mEq/L (136-145) L 09/09/18 06:35 Potassium 4.2 mEq/L (3.5-5.1) 09/09/18 06:35 Chloride 95 mEq/L (98-107) L 09/09/18 06:35 Carbon Dioxide 28.6 mEq/L (21.0-31.0) 09/09/18 06:35 Anion Gap 11.6 (7.0-16.0) 09/09/18 06:35 BUN 13 mg/dL (7-25) 09/09/18 06:35 Creatinine 1.1 mg/dL (0.7-1.3) 09/09/18 06:35 Est GFR ( Amer) > 60.0 ml/min (>90) 09/09/18 06:35 Est GFR (Non-Af Amer) > 60.0 ml/min 09/09/18 06:35 BUN/Creatinine Ratio 11.8 09/09/18 06:35 Glucose 305 mg/dL (70-105) H 09/09/18 06:35 POC Glucose 238 MG/DL (70 - 105) H 09/16/18 20:50 Calcium 9.7 mg/dL (8.6-10.3) 09/09/18 06:35 Total Bilirubin 0.7 mg/dL (0.3-1.0) 09/09/18 06:35 AST 12 U/L (13-39) L 09/09/18 06:35 ALT 17 U/L (7-52) 09/09/18 06:35 Alkaline Phosphatase 70 U/L (34-104) 09/09/18 06:35 Total Protein 7.3 gm/dL (6.0-8.3) 09/09/18 06:35 Albumin 4.4 gm/dL (4.2-5.5) 09/09/18 06:35 Globulin 2.9 gm/dL 09/09/18 06:35 Albumin/Globulin Ratio 1.5 (1.0-1.8) 09/09/18 06:35 Triglycerides 135 mg/dL (<150) 09/08/18 16:00 Cholesterol 170 mg/dL (<200) 09/08/18 16:00 LDL Cholesterol Direct 105 mg/dL (75-193) 09/08/18 16:00 HDL Cholesterol 50 mg/dL (23-92) 09/08/18 16:00 TSH 1.23 uIU/ml (0.34-5.60) 09/09/18 06:35 - Physical Exam Vitals and I&O: Vital Signs Temp 97.3 F 09/18/18 06:32 Pulse 98 09/18/18 06:32 Resp 19 09/18/18 06:32 BP 126/87 09/18/18 06:32 Pulse Ox 97 09/18/18 06:32 Intake & Output 09/17/18 09/18/18 09/18/18 18:59 06:59 18:59 Intake Total 1500 180 Balance 1500 180 Intake: Oral 1500 180 Other: # Voids 3 3 # Bowel Movements 0 0 Active Medications: Current Medications Acetaminophen (Tylenol) 650 mg PO Q4HR PRN PRN Reason: Mild Pain / Temp above 100 Stop: 11/07/18 14:15 Last Admin: 09/13/18 09:40 Dose: 650 mg Al Hydrox/Mg Hydrox/Simethicone (Maalox) 30 ml PO Q4HR PRN PRN Reason: GI DISTRESS Stop: 11/07/18 14:15 Aspirin (Ecotrin) 81 mg PO DAILY [facility] Stop: 11/08/18 10:14 Last Admin: 09/18/18 08:51 Dose: 81 mg Benztropine Mesylate (Cogentin) 1 mg PO BID [facility] Stop: 11/10/18 16:59 Last Admin: 09/18/18 08:52 Dose: 1 mg Carbidopa/Levodopa (Sinemet 10 Mg-100 Mg) 2 tab PO AC [facility] Stop: 11/08/18 11:29 Last Admin: 09/18/18 06:36 Dose: 2 tab Entacapone (Comtan) 200 mg PO TID [facility] Stop: 11/08/18 13:59 Last Admin: 09/18/18 08:52 Dose: 200 mg Gabapentin (Neurontin) 300 mg PO TID [facility] Stop: 11/08/18 13:59 Last Admin: 09/18/18 08:52 Dose: 300 mg Insulin Human Lispro (Humalog Insulin Sliding Scale) 0 units SUBQ ACHS ANNMARIE; Protocol Stop: 11/08/18 11:29 Last Admin: 09/18/18 06:37 Dose: 4 units Lorazepam (Ativan) 0.5 mg PO Q4HR PRN; Protocol PRN Reason: Anxiety Stop: 10/08/18 14:15 Last Admin: 09/14/18 08:07 Dose: 0.5 mg Magnesium Hydroxide (Milk Of Magnesia) 30 ml PO HS PRN PRN Reason: Constipation Metformin HCl (Glucophage) 500 mg PO BID [facility] Stop: 11/08/18 10:14 Last Admin: 09/18/18 08:52 Dose: 500 mg Quetiapine Fumarate (Seroquel) 25 mg PO BID ANNMARIE; Protocol Stop: 11/08/18 16:59 Last Admin: 09/18/18 08:51 Dose: 25 mg Tamsulosin HCl (Flomax) 0.8 mg PO HS ANNMARIE Stop: 11/08/18 20:59 Last Admin: 09/17/18 20:30 Dose: 0.8 mg Zolpidem Tartrate (Ambien) 5 mg PO HS PRN PRN Reason: Insomnia Stop: 11/07/18 14:15 Last Admin: 09/17/18 23:14 Dose: 5 mg General: alert HEENT: NC/AT, EOMI, throat clear Neck: No JVD, No thyromegaly, No LAD Lungs: CTAB Cardiovascular: RRR, Normal S1, Normal S2, without murmur Extremities: clear Neurological: no change, no unsteady Internal Medicine Assmt/Plan - Assessment Assessment: ACUTE PSYCH DECOMPENSATION HISTORY OF SCHIZOPHRENIA HISTORY OF BIPOLAR D/O HISTORY OF DM-2 HISTORY OF PERIPHERAL NEUROPATHY HISTORY OF PARKINSON'S DISEASE HISTORY OF NICOTINE DEPENDENCE HISTORY OF BPH HYPONATREMIA - Plan Plan: CONT WITH CURRENT IN-PATIENT PSYCH SUPPORTIVE CARE AND MGT CONT WITH SINEMET/COMTAM SCHEDULED CONT WITH GLUCOPHAGE 500MG BID CONT WITH NEURONTIN SCHEDULED CONT WITH FLOMAX SCHEDULED Nutritional Asmnt/Malnutr-PDOC - Dietary Evaluation Malnutrition Findings (Please click <Entered> for more info): Nutritional Asmnt/Malnutrition Start: 09/09/18 16: 33 Text: Status: Complete Freq: Protocol: Document 09/09/18 16:33 LCHENG (Rec: 09/09/18 16:42 [id number]) Nutritional Asmnt/Malnutrition Patient General Information Nutritional Screening High Risk Consult Diagnosis psychosis NOS Pertinent Medical Hx/Surgical Hx no H&P as of now Subjective Information Consult received for DM. Pt seen walking in hallway, stated food is ok. Not able to obtain more nutrition information or provide diabetic education d/t pt mental status. Per EMR, PO intake 100%. Current Diet Order/ Nutrition Support CCHO 60gm Pertinent Medications humalog, glucophage, seroquel Pertinent Labs 09/09 Na 131, Cl 95, Glucose 305 Nutritional Hx/Data Height 1.75 m Height (Calculated Centimeters) 175.3 Current Weight (lbs) 83.915 kg Weight (Calculated Kilograms) 83.9 Weight (Calculated Grams) 35087.6 [place] Body Weight 160 Body Mass Index (BMI) 27.3 Weight Status Overweight GI Symptoms GI Symptoms None Last BM none Difficult in: None Skin Integrity/Comment: intact Current %PO Good (75-100%) Estimated Nutritional Goals BEE in Kcals: Using Current wt Calories/Kcals/Kg 23-27 Kcals Calculated 7418-0212 Protein: Using Current wt Protein g/k Protein Calculated 84 Fluid: ml 2-2268ml (1ml/kcal) Nutritional Problem 1. Problem Problem altered nutrition related labs Etiology hyperglycemia Signs/Symptoms: glucose 305 Malnutrition Alert Is there a minimum of two criteria No selected? Query Text:Check all the applicable criteria. A minimum of two criteria are recommended for diagnosis of either severe or non-severe malnutrition. Malnutrition Related to Morbid Obesity Malnutrition related to morbid obesity No Intervention/Recommendation Comments 1. Continue with [facility] 60gm diet as ordered. MD to adjust insulin regimen for optimal glycemic control 2. Monitor PO intake, wt, labs and skin integrity 3. F/U as moderate risk in 3-5 days Expected Outcomes/Goals Expected Outcomes/Goals 1. PO intake to meet at least 75% of nutritional needs. 2. Wt stability, skin to remain intact, labs to approach WNL.
--- NOTE | 2018-09-18 10:46 | Progress Notes ---
DATE: 09/17/2018 The patient is still irritable, easily agitated, ongoing residual psychotic symptoms, but likely approaching his baseline. Generally calm, cooperative. The patient has been accepted to [facility]. Sleeping well, eating well, currently happy with treatment thus far. We will monitor for further 24 hours. [facility]# [id number]
--- NOTE | 2018-09-18 22:43 | Progress Notes ---
DATE: 09/18/2018 SUBJECTIVE: The patient is calmer, more cooperative, seems to be approaching his baseline, any psychotic symptoms dissipating, decreasing, seems to be doing well with current treatment regimen and some concerns for underlying psychotic symptoms with the patient reporting that any paranoia are dissipating, decreasing. He is somewhat suspicious, mostly keeps himself, fair sleep, fair appetite. ASSESSMENT: The patient seems to be approaching baseline generally calm and cooperative. I will be conservatively titrating dose of Seroquel. We will coordinate care with social work regarding safe discharge plan and good psychiatric followup. No SI. No HI. JOB# [id number]
== END 2018-09-18 17:15 | DRG 885 ==
LOC: GERO 12:20
PROVIDERS: ADMIT Psychiatry & Neurology Psychiatry; ATTEND Psychiatry & Neurology Psychiatry
DX: F20.9 Schizophrenia, unspecified (principal); E87.1 Hypo-osmolality and hyponatremia; F31.9 Bipolar disorder, unspecified; G20 Parkinson's disease; N40.0 Benign prostatic hyperplasia without lower urinary tract symptoms; G62.9 Polyneuropathy, unspecified; E11.42 Type 2 diabetes mellitus with diabetic polyneuropathy; F02.80 Dementia in other diseases classified elsewhere, unspecified severity, without behavioral disturbance, psychotic disturbance, mood disturbance, and anxiety; F17.210 Nicotine dependence, cigarettes, uncomplicated; Z79.899 Other long term (current) drug therapy; Z79.82 Long term (current) use of aspirin
CPT/HCPCS: 36415-UA; 71045-TC; 80053-TC; 80061-TC; 82948-90; 83036-90; 84443-TC; 85025-TC; 93005; G0410; Z7610